=== PATIENT | female | born 1980 | race Caucasian/White ===

== ENCOUNTER 2017-09-02 20:50 | Emergency (ER) | payer MEDICAID, SELFPAY ==
[2017-09-02 20:51] VITALS: BP 129/88; PULSE 82; RESP 16; TEMP 36.3; O2SAT 98; BMI 32.8
--- NOTE | 2017-09-02 21:30 | RAD_ITS ---
STUDY: X-RAY RIGHT FOOT, SECOND TOE REASON FOR EXAM: Female, 37 years old. Fall TECHNIQUE: view(s) of the toe were obtained. COMPARISON: None. FINDINGS: Normal visualized metatarsus. Normal metatarsophalangeal (M.T.P) joint. Normal interphalangeal joints. Normal phalanges and interphalangeal joints. The soft tissue structures are unremarkable. RAD/Toe(s) Min 2 Views IMPRESSION: No evidence of acute fracture. Electronically Signed: Pasha Rico DO at 22:27 EDT , Service support ,
--- NOTE | 2017-09-02 22:48 | ED.VISSUMM ---
- ER Visit Summary Date of Service: 09/02/17 Chief Complaint: Right second toe pain History of Present Illness: The patient is a 37 F presenting with right second toe pain. Patient was pushing her daughter in a swing. She stubbed her right second toe. She did not fall completely to the ground. Did not hit her head or lose consciousness. Complains of pain in the right second toe. No other complaints. Physical Examination: Vitals are stable. Patient is afebrile. Alert no acute distress. HEENT exam is unremarkable. Neck is supple. Lungs are clear and equal bilaterally. Heart is regular rate and rhythm. Extremities right 2nd toe ecchymosis and tenderness, no foot or ankle tenderness Skin is warm and dry. Remainder of exam is unremarkable. Emergency Department Course and Treatment: X-ray of the right second toe shows no acute fracture. Toes are evan taped, postop shoe was given. She is advised use NSAIDs for pain. Advised to ice and elevate. Advised return to ED for worsening complaints. Disposition: Discharged home Impression: Right second toe contusion This note was generated with [employer] dictation software. It may contain incorrect words, spelling, and punctuation that were not noted in review of the chart prior to signing ED Disposition - Plan for ED Patient: Chief Complaint: Lower Extremity Injury Referrals: Care Physician,No Primary [Primary Care Provider] -
--- NOTE | 2017-09-02 22:51 | ED.DCSUM_ITS ---
- ER Visit Summary Date of Service: 09/02/17 Chief Complaint: Right second toe pain History of Present Illness: The patient is a 37 F presenting with right second toe pain. Patient was pushing her daughter in a swing. She stubbed her right second toe. She did not fall completely to the ground. Did not hit her head or lose consciousness. Complains of pain in the right second toe. No other complaints. Physical Examination: Vitals are stable. Patient is afebrile. Alert no acute distress. HEENT exam is unremarkable. Neck is supple. Lungs are clear and equal bilaterally. Heart is regular rate and rhythm. Extremities right 2nd toe ecchymosis and tenderness, no foot or ankle tenderness Skin is warm and dry. Remainder of exam is unremarkable. Emergency Department Course and Treatment: X-ray of the right second toe shows no acute fracture. Toes are evna taped, postop shoe was given. She is advised use NSAIDs for pain. Advised to ice and elevate. Advised return to ED for worsening complaints. Disposition: Discharged home Impression: Right second toe contusion This note was generated with [employer] dictation software. It may contain incorrect words, spelling, and punctuation that were not noted in review of the chart prior to signing ED Disposition - Plan for ED Patient: Chief Complaint: Lower Extremity Injury Referrals: Care Physician,No Primary [Primary Care Provider] -
--- NOTE | 2017-09-02 22:52 | ED.DEP ---
ED Disposition - Plan for ED Patient: Chief Complaint: Lower Extremity Injury Instructions: ED Contusion Foot Referrals: Care Physician,No Primary [Primary Care Provider] -
[2017-09-02 23:12] VITALS: RESP 18
== END 2017-09-02 23:14 | disposition home or self-care (01) ==
PROVIDERS: Emergency Provider Emergency Medicine
DX: S90.121A Contusion of right lesser toe(s) without damage to nail, initial encounter (principal); W22.8XXA Striking against or struck by other objects, initial encounter; Y93.89 Activity, other specified; Y92.89 Other specified places as the place of occurrence of the external cause; Y99.8 Other external cause status
CPT/HCPCS: 73660; 99283